=== PATIENT | male | born 1995 | race Caucasian/White ===

== ENCOUNTER 2023-09-10 19:30 | Emergency (ER) | payer OTHER, SELFPAY ==
[2023-09-10 19:31] VITALS: BP 130/86
[2023-09-10 19:52] LABS: % Basophils 0.5 % (0-2); % Eosinophils 1.6 % (0-6); % Immature Granulocytes 0.2 % (0-0.5); % Lymphocytes 37.2 % (20.5-51.1); % Monocytes 10.2 % (1.7-9.3); % Neutrophils 50.3 % (42.2-75.2); Absolute Eosinophils 0.1 10^3/uL (0-0.7); Absolute Lymphocytes 2.1 10^3/uL (1.2-3.4); Absolute Monocytes 0.6 10^3/uL (0.1-0.6); Absolute Neutrophils 2.8 10^3/uL (1.4-6.5); Hematocrit 44.7 % (39.0-52.0); Hemoglobin 15.7 g/dL (13.0-18.0); Mean Corp Hgb Conc. 35.1 g/dL (33.0-37.0); Mean Corpuscular Hgb 31.2 pg (27.0-31.0); Mean Corpuscular Volume 88.9 fL (80.0-94.0); Mean Platelet Volume 8.9 fL (7.4-10.4); Nucleated Red Blood Cells % 0 % (-); Platelet Count 214 10^3/uL (130-400); Red Blood Cell Count 5.03 10^6/uL (4.70-6.10); Red Cell Dist. Width 12.2 % (11.5-14.5); White Blood Cell Count 5.5 10^3/uL (4.8-10.8)
[2023-09-10 20:06] LABS: ALT (SGPT) 23 U/L (0-50); AST (SGOT) 26 U/L (17-59); Albumin 4.7 g/dl (3.5-5.0); Alkaline Phosphatase 61 U/L (38-126); Blood Urea Nitrogen 19 mg/dl (9-20); Calcium 9.7 mg/dl (8.4-10.2); Carbon Dioxide 28 mmol/L (22-30); Chloride 98 mmol/L (98-107); Glucose 88 mg/dl (70-99); Sodium 139 mmol/L (135-145); Total Bilirubin 0.9 mg/dl (0.2-1.3); Total Protein 7.6 g/dl (6.3-8.2); eGFR > 60.00
[2023-09-10 20:16] LABS: Troponin I < 0.012 ng/ml
--- NOTE | 2023-09-10 21:18 | ED.GENMED ---
History of Present Illness
General
Chief Complaint: Cardiac Symptoms
Source: patient
Exam Limitations: none
Time Seen by Provider: 09/10/23 21:07
Travel History
Have you had any contact with someone who has COVID-19?: No
Do you have any symptoms of coronavirus? Fever > 100 degrees, chills, cough, shortness of breath, sore throat, loss of taste or smell, muscle aches, or headache?: No
History of Present Illness
History of Present Illness:
This is a 28 year old male that comes in with c/o chest pain. Sates that he was just discharged 2 days ago from [facility]. States that he had chest pain and that his Troponin there was elevated. States that he started with chest pain a few hours
after he was discharged. States that it comes and goes for the past 2 days. States that he also feels SOB and lightheaded. Denies any fever, chills, abd pain, nausea, vomiting, diarrhea, headache, urinary burning.
Past History
Past History
ED Past Medical History: GERD, OK (Questionable), Psychiatric (Depression, ) and Other (Takes meds Prophylactic for HIV)
ED Past Surgical History: Tonsilectomy and Other (Vocal cord surgery, Sinus surgery for Deviated septum)
Social History
Tobacco: Non-smoker
Alcohol: Occasional
Personal: Single
Living: with family
Review of Systems
Review of Systems
All Other Systems: ROS reviewed and negative except as documented in HPI and ROS
Constitutional: Reports no symptoms; Denies fever or chills
EENT: Reports no symptoms
Respiratory: Reports trouble breathing; Denies cough
Cardiac: Reports chest pain
ABD/GI: Reports no symptoms; Denies abdominal pain, nausea, vomiting or diarrhea
: Reports no symptoms; Denies dysuria, frequency or urgency
Musculoskeletal: Reports no symptoms
Skin: Reports no symptoms
Neurological: Reports other (Lightheaded); Denies headache
Psychiatric: Reports no symptoms
Phy Exam
General Physical Exam
General Presentation: no apparent distress
General age: appears stated age
General Skin: warm and dry
General Habitus: normal
General Mental: alert
General Hydration: appears well hydrated
ENT Exam
ENT Exam: TM's normal, pharynx normal and neck supple
Eye Exam
Eye Exam: EOMI
Cardiovascular Exam
Cardiovascular Exam: regular rate/rhythm, no edema and normal peripheral pulses
Pulmonary Exam
Pulmonary Exam: lungs clear, no respiratory distress, no rales, chest non tender, no crackles, no rhonchi, no wheezing and no cough
Gastrointestinal Exam
Gastrointestinal Exam: normal bowel sounds, non tender, soft, no organomegaly, no pulsatile mass and non distended
Musculoskeletal Exam
Musculoskeletal Exam: full ROM and no edema
Skin Exam
Skin Exam: normal color, warm/dry, no rash and no petechia
Psychiatric Exam
Psychiatric Exam: normal mood/affect
Course
Orders/Labs/Results
Orders:
Orders
09/10/23 19:34
Electrocardiogram (*1) Urgent
Reason for Study: Chest Pain
EKG- Treatment ONCE
09/10/23 19:42
C-Reactive Protein Urgent
Comment: AD ON
CMP [Comprehensive Metabolic Panel] Urgent
Complete Blood Count/With Diff Urgent
Erythrocyte Sed Rate Urgent
Comment: ADD ON
Troponin I Urgent
09/10/23 21:15
EKG- Treatment ONCE
09/10/23 21:17
Ketorolac [Toradol] 30 mg IV NOW STA
Pantoprazole [Protonix IV] 40 mg IV NOW STA
CR Chest - 2 Views Urgent
Comment:
Reason For Exam: chest pain, SOB,
09/10/23 21:18
Add On- LAB Urgent
Tests Added?: sed rate and CRP
09/10/23 21:19
Sterile Water [Sterile Water For Injection] 10 ml .ROUTE .STK-MED ONE
09/10/23 22:36
Troponin I Urgent
09/10/23 22:45
Electrocardiogram (*1) Urgent
Reason for Study: Chest Pain
Other Reason for Exam: Repeat with Troponin
Abnormal Lab Results
09/10/23
19:42
MCH 31.2 H pg
(27.0-31.0)
Monocytes % 10.2 H %
(1.7-9.3)
09/10/23 19:42
09/10/23 19:42
Labs unremarkable. Troponin <0.012
Second Troponin <0.012, Sed rate normal at 6, CRP normal at 8.0
Vital Signs
Initial and Last Documented VS:
Initial Vital Signs
Temp Pulse Resp BP Pulse Ox
98.1 F 94 22 130/86 100
09/10/23 19:31 09/10/23 19:31 09/10/23 19:31 09/10/23 19:31 09/10/23 19:31
Last Documented Vital Signs
Temp Pulse Resp BP Pulse Ox
98.1 F 76 17 136/73 96
09/10/23 19:31 09/10/23 23:15 09/10/23 23:15 09/10/23 23:09 09/10/23 22:59
MDM/Problems Addressed
Differential Diagnosis Includes:
Pericarditis, Angina
MDM/Problems Addressed:
This is a 28 year old male that comes in with left sided chest pain. States that he was just discharged from [facility] after being there for chest pain. States that he was told that he had an OK but was not given a automotive porter or any medication
according to patient.
Will check labs, chest x-ray and will place patient on the Cardiology hot line. Explained to patient that this may all be due to anxiety.
Repeat ECG: rate 80, NSR, Normal axis, Normal QRS, negative for ischemia. Checked by Dr. Harp
Back into see patient. Explained that his second Troponin is also normal. Patient told nursing that he has been doing IV drugs. Explained to patient that this will cause your heart rate to increased and can cause chest pain. Explained that he needs
to stop the drugs. Patient can use Tylenol or Ibuprofen for pain. Follow up with the family doctor. Return with any concerns .
Chronic conditions affecting care:
NA
Acute Exacerbation and/or Progression of Chronic Illness:
NA
*Radiology
Radiology exam reviewed: preliminary read by ED provider (Chest=- negative for active disease. )
*Pulse Oximetry
Patient hypoxic: no
*EKG
Interpreted by ED Provider?: Yes
Heart Rate: 88
Rate: normal
Rhythm: sinus
[place]: normal axis
Interval: normal interval
QRS Pattern: normal QRS
Ischemia: no ischemia (Checked by DR Carroll)
*Critical Care Note
Total Time (30-74mins, 75-104mins- exclusive of procedures): Not Applicable
ED Attending Note
-
Portions of this chart may have been created with voice recognition software.� Occasional wrong word or��sound alike� substitutions may have occurred due to the inherent limitations of voice recognition software.
Discharge Plan
Departure
Patient Disposition: Home (Routine Discharge)
Date of Disposition: 09/10/23
Time of Disposition: 23:52
Patient with high blood pressure during this ER visit?: Yes
Condition: Good
Covid-19: Not Applicable
Discharge Problem:
Chest pain
Instructions: Chest Pain PCP Follow Up, BLOOD PRESSURE
Prescriptions:
No Action
lamotrigine [Lamictal] 200 MG tablet
200 mg PO DAILY
Descovy 200-25 mg Tablet
1 tab PO DAILY
omeprazole 20 mg capsule,delayed release(DR/EC)
20 mg PO DAILY Qty: 20 0RF
ondansetron 4 mg tablet,disintegrating
4 mg PO Q8H PRN (Reason: nausea and vomiting) Qty: 10 0RF
Referrals:
Leif Marte, DO [Family Provider] - Follow up in 2-3 days
Activity Restrictions/Additional Instructions:
As discussed, your blood work is normal. Please stop the IV drugs as this can give your chest pain and cause your heart rate to increased. Please increase your water intake to 8-8oz glasses daily. Follow up with the family doctor for recheck. You
may take Tylenol 1000mg every 6 hours for pain and Ibuprofen 600mg every 6 hours with food for pain. IF YOU HAVE INCREASED OR CHANGING CHEST PAIN, OR YOU HAVE ANY OTHER CONCERNS PLEASE RETURN TO THE EMERGENCY ROOM.
Interventions
Interventions:
*Risk Screen - Suicide Last Done: 09/10/23 19:31
*General Assessment Last Done: 09/10/23 21:29
*Neglect/Abuse Screening Last Done: 09/10/23 19:31
*ED COVID-19 Vaccine History Last Done: 09/10/23 21:29
ED- Pulmonary Assessment Last Done: 09/10/23 21:50
ED- Cardiac Assessment Last Done: 09/10/23 21:50
[2023-09-10 21:28] VITALS: BP 122/72
[2023-09-10 21:45] LABS: Erythrocyte Sed Rate 6 mm/hour (0-20)
[2023-09-10 22:00] VITALS: BP 125/72
[2023-09-10 23:09] VITALS: BP 136/73
[2023-09-10 23:16] LABS: Troponin I < 0.012 ng/ml
[2023-09-11] MEDS: TYLENOL 1000 MG PO (00:02)
== END 2023-09-11 00:15 | disposition home or self-care (01) ==
LOC: EMR 19:30
PROVIDERS: Clinical Nurse Specialist Family Health; Emergency Medicine; EMERGENCY PHYSICIAN Emergency Medicine; FAMILY PHYSICIAN Family Medicine
DX: R07.89 Other chest pain (principal); K21.9 Gastro-esophageal reflux disease without esophagitis; I25.2 Old myocardial infarction; F32.A Depression, unspecified; Z21 Asymptomatic human immunodeficiency virus [HIV] infection status
CPT/HCPCS: 99283; 71046; 80053; 84484; 85025; 85652; 86140; 93005

== ENCOUNTER 2024-02-29 18:47 | Emergency (ER) | payer OTHER, SELFPAY ==
[2024-02-29 18:50] VITALS: BP 141/80
[2024-02-29 19:44] LABS: Urine Albumin Negative (Neg - Trace); Urine Bilirubin Negative (Negative); Urine Character Clear (Clear); Urine Color Yellow; Urine Glucose Negative (Negative); Urine Ketone Trace (Negative); Urine Leukocyte Trace (Negative); Urine Nitrite Negative (Negative); Urine Occult Blood Trace (Negative); Urine Urobilinogen Negative (Neg - 1+)
[2024-02-29 19:53] LABS: Urine Red Blood Cell 0-2 /HPF (0-2); Urine White Cell 0-2 /HPF (0-5)
--- NOTE | 2024-02-29 20:26 | ED.GENMED ---
History of Present Illness
General
Chief Complaint: Male Genito-Urinary Symptoms
Source: patient
Time Seen by Provider: 02/29/24 19:16
History of Present Illness
History of Present Illness:
28-year-old male with no significant past medical history presenting to the emergency department for evaluation of bilateral testicular pain, edema and some discoloration that occurred yesterday following intercourse stating he felt that he was
unable to ejaculate as well as noticed the testicles turned a slightly bluish-purple color but is since resolved but still with some mild discomfort. Patient is sexually active, anal intercourse only, intermittently uses protection. Notes that he
was wearing a penis ring at the time and feels that this may have restricted the penis and may have been the potential cause for symptoms. He notes that he does every 3 month checks for HIV and other STI. Denies any urinary symptoms including
urinary frequency/urgency, dysuria, hematuria, urethral discharge, lesions or sores on the penis. He is also denying any fevers or chills/back or flank pain.
Past History
Past History
ED Past Medical History: Psychiatric (Depression, ) and Other (Takes meds Prophylactic for HIV)
ED Past Surgical History: Tonsilectomy and Other (Vocal cord surgery, Sinus surgery for Deviated septum)
Social History
Tobacco: Non-smoker
Alcohol: Occasional
Drug: None
Personal: Single
Living: with family
Review of Systems
Review of Systems
All Other Systems: ROS reviewed and negative except as documented in HPI and ROS
Phy Exam
Physical Exam
Physical Exam:
GENERAL: Alert , in no apparent distress
EYE: conjunctiva clear
Head: Normocephalic atraumatic
NECK: Supple,
ENT: mmm.
LUNGS: no acute respiratory distress
Genitourinary: No lesions or sores on the penile shaft or scrotum, no urethral discharge, testicles nontender or edematous. No edema to the epididymis bilateral. Positive cremasteric reflex bilateral. No hernias appreciated
NEUROLOGICAL: Alert and oriented
SKIN: Warm and dry, skin intact.
MUSCULOSKELETAL: well perfused.
PSYCH: Normal and appropriate interaction.
Scores
Heart Failure Risk
Heart Failure Risk Score: Not Applicable
Heart Score for Chest Pain Patients
STEMI patient?: Not applicable
Withdrawal Assessment of Alcohol
Withdrawal Assessment Completed?: Not applicable
Course
Orders/Labs/Results
Orders:
Orders
02/29/24 18:52
US Scrotum Urgent
Comment:
Reason For Exam: pain, redness, swelling
02/29/24 19:30
Urinalysis Reflex To Culture Urgent
Date Specimen was Collected: 02/29/24
Time Specimen was Collected: 19:23
Urine Microscopic Reflex Cult Urgent
Chlamydia/GC by PCR Urgent
CLEMENT Source: Urine
Specimen Description:
Source:: URINE
Date Specimen was Collected: 02/29/24
Time Specimen was Collected: 19:23
Abnormal Lab Results
02/29/24
19:30
Urine Ketones Trace A
(Negative)
Ur Occult Blood Reflex Trace A
(Negative)
Leukocyte Esterase Rfl Trace A
(Negative)
Vital Signs
Initial and Last Documented VS:
Initial Vital Signs
Temp Pulse Resp BP Pulse Ox
98.2 F 94 16 141/80 96
02/29/24 18:50 02/29/24 18:50 02/29/24 18:50 02/29/24 18:50 02/29/24 18:50
Last Documented Vital Signs
Temp Pulse Resp BP Pulse Ox
98.2 F 90 18 136/70 99
02/29/24 18:50 02/29/24 21:27 02/29/24 21:27 02/29/24 21:27 02/29/24 21:27
MDM/Problems Addressed
Differential Diagnosis Includes:
STI, UTI, constriction secondary to intercourse device
MDM/Problems Addressed:
28-year-old male present emergency department for bilateral testicular pain and swelling as well as discoloration that occurred during intercourse. Patient was wearing a penile ring at the time of discomfort which may have been causing some
restriction or congestion and was the suspected cause of patient's symptoms. Given his increased risk for STI as well as UTI will check urinalysis as well as GC/chlamydia. Ultrasound ordered. Disposition pending. Patient may need follow-up with
urology if symptoms continue
*Radiology
Radiology exam reviewed: radiology read reviewed
*Pulse Oximetry
Patient hypoxic: no
*Critical Care Note
Total Time (30-74mins, 75-104mins- exclusive of procedures): Not Applicable
Patient Management
Escalation/DeEscalation of care consider admission/obs:
Patient's ultrasound is unremarkable. Informed of the small varicocele and hydrocele. Provided with printout of ultrasound report. Stable for discharge home and aware options. Information for urology provided
ED Attending Note
-
Portions of this chart may have been created with voice recognition software.� Occasional wrong word or��sound alike� substitutions may have occurred due to the inherent limitations of voice recognition software.
Discharge Plan
Departure
Patient Disposition: Home (Routine Discharge)
Date of Disposition: 02/29/24
Time of Disposition: 21:40
Patient with high blood pressure during this ER visit?: No
Discharge Problem:
Pain in both testicles, Left varicocele, Right hydrocele
Instructions: How to Perform a Testicular Self-Exam
Prescriptions:
No Action
lamotrigine [Lamictal] 200 MG tablet
200 mg PO DAILY
Descovy 200-25 mg Tablet
1 tab PO DAILY
omeprazole 20 mg capsule,delayed release(DR/EC)
20 mg PO DAILY Qty: 20 0RF
ondansetron 4 mg tablet,disintegrating
4 mg PO Q8H PRN (Reason: nausea and vomiting) Qty: 10 0RF
Referrals:
Axel Adames PA-C [Family Provider] -
Wiliam Mcknight MD [Active] - (Urology if needed)
Interventions
Interventions:
*Risk Screen - Suicide Last Done: 02/29/24 19:51
*General Assessment Last Done: 02/29/24 18:48
*ED COVID-19 Vaccine History Last Done: 02/29/24 18:48
*Nursing Disposition Last Done: 02/29/24 21:49
ED-Male Genitourinary Assessment Last Done: 02/29/24 19:51
Discharge Date and Time
Discharge Date/Time: 02/29/24 21:49
Print Language: ROMANIAN
[2024-02-29 21:27] VITALS: BP 136/70
== END 2024-02-29 21:49 | disposition home or self-care (01) ==
LOC: EMR 18:47
PROVIDERS: Physician Assistant Medical; EMERGENCY PHYSICIAN Emergency Medicine; FAMILY PHYSICIAN Physician Assistant
DX: I86.1 Scrotal varices (principal); N43.3 Hydrocele, unspecified; N50.812 Left testicular pain; N50.811 Right testicular pain
CPT/HCPCS: 99284; 76870; 81003; 81015; 87491; 87591; 93976